=== PATIENT | female | born 1945 | race Caucasian/White ===

== ENCOUNTER 2016-09-18 17:13 | Emergency (ER) | payer BC ==
[~2016-09-18] VITALS: Ht 162.6 cm; Wt 55.9 kg
[2016-09-18 17:21] VITALS: TEMP 98.1
[2016-09-18] MEDS ORDERED: VALIUM 5MG T5 MG/TAB PO (18:33)
[2016-09-18] MEDS ORDERED: ZOFRAN ODT8 MG PO (18:33)
[2016-09-18 18:49] VITALS: PULSE 89
[2016-09-18 18:53] VITALS: BP 165/107
== END 2016-09-18 18:55 | disposition home or self-care (01) ==
LOC: COL.ER 17:13
DX: M54.2 Cervicalgia (principal); G89.29 Other chronic pain; M50.20 Other cervical disc displacement, unspecified cervical region
CPT/HCPCS: J2270; J2360

== ENCOUNTER 2017-03-30 14:23 | Emergency (ER) | payer BC ==
[~2017-03-30] VITALS: Ht 162.6 cm; Wt 56.8 kg
[~2017-03-30 14:23] MED LIST: VALIUM 5MG T5 MG/TAB PO; ZOFRAN ODT8 MG PO
[2017-03-30 14:29] VITALS: TEMP 98.6
[2017-03-30] MEDS ORDERED: SYNTHROID 0.0.025 MG PO (15:45)
[2017-03-30] MEDS ORDERED: WELLBUTRIN XL300 M1 PO (15:45)
[2017-03-30] MEDS ORDERED: NORCO2.5 PO (15:46)
[2017-03-30] MEDS ORDERED: HCTZ12.5TAB PO (15:46)
[2017-03-30] MEDS ORDERED: NEXIUM 20MG20 MG PO (15:46)
[2017-03-30] MEDS ORDERED: VALIUM 2MG T2 MG/TAB PO (15:48)
[2017-03-30] MEDS ORDERED: CEPHALEXIN500 M1 PO (16:08)
[2017-03-30 16:52] VITALS: BP 144/85; PULSE 68
[2017-03-30] MEDS ORDERED: SYNTHROID0.05 MG/TA PO (21:25)
== END 2017-03-30 16:55 | disposition home or self-care (01) ==
LOC: COL.ER 14:23
DX: S61.210A Laceration without foreign body of right index finger without damage to nail, initial encounter (principal); W27.8XXA Contact with other nonpowered hand tool, initial encounter; Z23 Encounter for immunization

== ENCOUNTER 2017-03-30 21:18 | Emergency (ER) | payer BC ==
[~2017-03-30] VITALS: Ht 154.9 cm; Wt 56.8 kg
[~2017-03-30 21:18] MED LIST changes: +CEPHALEXIN500 M1 PO; +HCTZ12.5TAB PO; +NEXIUM 20MG20 MG PO; +NORCO2.5 PO; +SYNTHROID 0.0.025 MG PO; +VALIUM 2MG T2 MG/TAB PO; +WELLBUTRIN XL300 M1 PO
[2017-03-30 21:20] VITALS: BP 158/93; TEMP 99.3
[2017-03-30] MEDS ORDERED: SYNTHROID0.05 MG/TA PO (21:25)
[2017-03-30 22:13] VITALS: PULSE 80
== END 2017-03-30 22:13 | disposition home or self-care (01) ==
LOC: COL.ER 21:18
DX: S61.211D Laceration without foreign body of left index finger without damage to nail, subsequent encounter (principal); X58.XXXD Exposure to other specified factors, subsequent encounter; I10 Essential (primary) hypertension; E03.9 Hypothyroidism, unspecified; K21.9 Gastro-esophageal reflux disease without esophagitis; G89.29 Other chronic pain; M54.2 Cervicalgia

== ENCOUNTER 2017-04-14 19:15 | Emergency (ER) | payer BC ==
[~2017-04-14 19:15] MED LIST changes: +SYNTHROID0.05 MG/TA PO
[2017-04-14 19:52] VITALS: BP 138/88; PULSE 82; TEMP 99.1
== END 2017-04-14 19:53 | disposition home or self-care (01) ==
LOC: COL.ER 19:15
DX: Z48.02 Encounter for removal of sutures (principal)

== ENCOUNTER 2017-05-04 15:33 | Inpatient (IN) | payer BC ==
[~2017-05-04] VITALS: Ht 162.6 cm; Wt 55.8 kg
[2017-05-04] MEDS ORDERED: MACRODANTIN100 PO (15:57)
[2017-05-04 16:23] LABS: BASO # 0.1 (0.0-0.2); BASO % 0.4 % (0.0-2.0); EOS % 0.1 % (0-4.0); GRAN # 15.3 (1.4-6.5); GRAN % 89.8 % (42.2-75.2); HEMATOCRIT 42.6 % (37.0-47.0); HEMOGLOBIN 14.7 g/dl (12.5-16.0); LYMPH # 0.8 (1.2-3.4); LYMPH % 4.7 % (20.0-51.0); MEAN CELL VOLUME 79 fl (80.0-100.0); MEAN CORPUSCULAR HEMOGLOBIN 27 pg (27.0-31.0); MEAN CORPUSCULAR HGB CONC 35 g/dl (33.0-37.0); MEAN PLATELET VOLUME 8.7 fl (7.4-10.4); MONO # 0.8 (0.1-0.6); MONO % 4.4 % (1.7-9.3); PLATELET COUNT 327 K/mm3 (130-400); RED BLOOD COUNT 5.43 M/mm3 (4.10-5.30); REDCELL DISTRIBUTION WIDTH-CV 13.4 % (11.5-14.5)
[2017-05-04 16:35] LABS: ADJUSTED CALCIUM 9.3 mg/dL (8.4-10.2); ALBUMIN 4.7 gm/dL (3.5-5.0); BILIRUBIN,TOTAL 1.1 mg/dL (0.0-1.0); CALCIUM 9.9 mg/dL (8.4-10.2); CREATININE, serum 0.54 mg/dL (0.52-1.25); TOTAL PROTEIN 7.1 gm/dL (6.4-8.2)
[2017-05-04 16:43] LABS: POTASSIUM 2.7 mmol/L (3.4-5.0)
[2017-05-04 18:13] LABS: PH 8 (5-8); SQUAMOUS EPITHELIAL 0-2 /hpf; URINE APPEARANCE Cloudy; URINE BACTERIA None Seen /hpf; URINE BILIRUBIN Negative (NEGATIVE); URINE BLOOD 2+ (NEGATIVE); URINE COLOR Yellow; URINE GLUCOSE Negative (NEGATIVE); URINE KETONE 1+ (NEGATIVE); URINE RBC None Seen /hpf; URINE UROBILINOGEN Negative (NEGATIVE); URINE WBC 0-2 /hpf
[2017-05-04 18:40] VITALS: BP 151/17; PULSE 98
[2017-05-04 18:54] VITALS: TEMP 99.3
[2017-05-04 23:44] VITALS: BP 112/57; PULSE 89; TEMP 99
[2017-05-05 03:59] VITALS: BP 112/58; PULSE 82; TEMP 98.1
[2017-05-05 07:41] VITALS: BP 120/68; PULSE 78; TEMP 98.4
[2017-05-05 12:13] VITALS: BP 131/79; PULSE 74; TEMP 98.7
[2017-05-05 16:00] VITALS: BP 145/101; PULSE 99; TEMP 98.2
[2017-05-05 20:29] VITALS: BP 149/96; PULSE 75; TEMP 98.9
[2017-05-06] VITALS (7 sets, daily range): BP systolic 127–154; BP diastolic 82–94; PULSE 65–81; TEMP 97.9–98.9
[2017-05-07 03:54] VITALS: BP 118/71; PULSE 74; TEMP 98.2
[2017-05-07 07:51] VITALS: BP 153/86; PULSE 77; TEMP 98.9
[2017-05-07 11:49] VITALS: BP 125/63; PULSE 74; TEMP 99.2
[2017-05-07 15:31] VITALS: BP 139/85; PULSE 68; TEMP 98.5
[2017-05-07] MEDS ORDERED: KLOR-CON 1010 MEQ PO (17:03)
[2017-05-07] MEDS ORDERED: LEVAQUIN 5500 MG/TA1 PO (17:04)
== END 2017-05-07 18:21 | disposition home or self-care (01) | DRG 392 ==
LOC: COL.ER 15:33 → MEDICAL 17:20
PROVIDERS: Emergency Medicine
DX: K52.9 Noninfective gastroenteritis and colitis, unspecified (principal); E03.9 Hypothyroidism, unspecified; F32.9 Major depressive disorder, single episode, unspecified; K59.03 Drug induced constipation; T40.605A Adverse effect of unspecified narcotics, initial encounter; Z86.010 Personal history of colon polyps; M54.2 Cervicalgia
CPT/HCPCS: C9113; J1956; J2405; J2543; J2765; J3010; J3480; J7030; J7050; Q9967

== ENCOUNTER 2017-05-30 21:49 | Inpatient (IN) | payer BC ==
[~2017-05-30] VITALS: Ht 162.6 cm; Wt 56.8 kg
[~2017-05-30 21:49] MED LIST changes: +KLOR-CON 1010 MEQ PO; +LEVAQUIN 5500 MG/TA1 PO; +MACRODANTIN100 PO
[2017-05-30 22:26] LABS: BASO % 0.1 % (0.0-2.0); GRAN # 14.6 (1.4-6.5); GRAN % 91.7 % (42.2-75.2); HEMATOCRIT 45.5 % (37.0-47.0); HEMOGLOBIN 15.6 g/dl (12.5-16.0); LYMPH # 0.6 (1.2-3.4); LYMPH % 3.7 % (20.0-51.0); MEAN CELL VOLUME 80 fl (80.0-100.0); MEAN CORPUSCULAR HEMOGLOBIN 28 pg (27.0-31.0); MEAN CORPUSCULAR HGB CONC 34 g/dl (33.0-37.0); MEAN PLATELET VOLUME 8.5 fl (7.4-10.4); MONO # 0.6 (0.1-0.6); MONO % 3.9 % (1.7-9.3); PLATELET COUNT 283 K/mm3 (130-400); RED BLOOD COUNT 5.67 M/mm3 (4.10-5.30); REDCELL DISTRIBUTION WIDTH-CV 13.2 % (11.5-14.5)
[2017-05-30 22:38] LABS: ADJUSTED CALCIUM 9.3 mg/dL (8.4-10.2); ALBUMIN 4.7 gm/dL (3.5-5.0); BILIRUBIN,TOTAL 0.8 mg/dL (0.0-1.0); CALCIUM 9.9 mg/dL (8.4-10.2); CREATININE, serum 0.58 mg/dL (0.52-1.25); POTASSIUM 3.1 mmol/L (3.4-5.0); TOTAL PROTEIN 7.7 gm/dL (6.4-8.2)
[2017-05-30 23:41] LABS: PH 7 (5-8); SQUAMOUS EPITHELIAL None Seen /hpf; URINE APPEARANCE Clear; URINE BACTERIA None Seen /hpf; URINE BILIRUBIN Negative (NEGATIVE); URINE BLOOD 1+ (NEGATIVE); URINE COLOR Yellow; URINE GLUCOSE 1+ (NEGATIVE); URINE KETONE 1+ (NEGATIVE); URINE RBC 20-50 /hpf; URINE UROBILINOGEN Negative (NEGATIVE)
[2017-05-31] VITALS (7 sets, daily range): BP systolic 111–154; BP diastolic 68–80; PULSE 66–87; TEMP 98.1–100.1
[2017-06-01 03:21] VITALS: BP 142/74; PULSE 97; TEMP 98.5
[2017-06-01] MEDS ORDERED: NORCO 325 MG-51 TAB PO (07:46)
[2017-06-01 08:22] VITALS: BP 110/73; BP 151/84; PULSE 100; PULSE 59; TEMP 97.6; TEMP 98.4
[2017-06-01 12:16] VITALS: BP 146/81; PULSE 76
[2017-06-01 16:23] VITALS: BP 109/67; PULSE 71; TEMP 98.9
[2017-06-01 19:18] VITALS: BP 120/70; PULSE 71; TEMP 98.9
[2017-06-01 22:44] VITALS: BP 125/71; PULSE 63; TEMP 99.2
[2017-06-02] VITALS (7 sets, daily range): BP systolic 120–149; BP diastolic 51–89; PULSE 62–80; TEMP 97.5–98.6
[2017-06-02] MEDS ORDERED: LEVAQUIN 750MG750 M1 PO ×2 (18:08→18:09)
[2017-06-02] MEDS ORDERED: FLAGYL500 MG PO (18:11)
[2017-06-02] MEDS ORDERED: NORCO 325 MG-51 TAB PO (18:15)
== END 2017-06-02 19:05 | disposition home or self-care (01) | DRG 392 ==
LOC: COL.ER 21:49 → MEDICAL 22:26
PROVIDERS: Emergency Medicine; Internal Medicine Gastroenterology
PROC: 0DJD8ZZ Inspection of Lower Intestinal Tract, Via Natural or Artificial Opening Endoscopic (ICD-10-PCS; principal; 2017-06-02 16:00)
DX: K57.32 Diverticulitis of large intestine without perforation or abscess without bleeding (principal); M54.2 Cervicalgia
CPT/HCPCS: J1170; J1956; J2405; J2704; J7030; Q9967

== ENCOUNTER 2017-10-25 16:48 | Inpatient (IN) | payer BC, MEDICARE ==
[~2017-10-25] VITALS: Ht 162.6 cm; Wt 60.9 kg
[~2017-10-25 16:48] MED LIST changes: +FLAGYL500 MG PO; +LEVAQUIN 750MG750 M1 PO; +NORCO 325 MG-51 TAB PO
[2017-10-25 17:21] LABS: BASO % 0.4 % (0.0-2.0); EOS # 0.1 (0.0-0.7); EOS % 1.2 % (0-4.0); GRAN # 7.9 (1.4-6.5); GRAN % 76.1 % (42.2-75.2); HEMATOCRIT 44.5 % (37.0-47.0); HEMOGLOBIN 14.6 g/dl (12.5-16.0); LYMPH # 1.9 (1.2-3.4); LYMPH % 17.9 % (20.0-51.0); MEAN CELL VOLUME 82 fl (80.0-100.0); MEAN CORPUSCULAR HEMOGLOBIN 27 pg (27.0-31.0); MEAN CORPUSCULAR HGB CONC 33 g/dl (33.0-37.0); MEAN PLATELET VOLUME 8.5 fl (7.4-10.4); MONO # 0.4 (0.1-0.6); PLATELET COUNT 328 K/mm3 (130-400); RED BLOOD COUNT 5.43 M/mm3 (4.10-5.30)
[2017-10-25 17:34] LABS: ALANINE AMINOTRANSFERASE 27 U/L (9-52); ALBUMIN 4.4 gm/dL (3.5-5.0); ALKALINE PHOSPHATASE 58 U/L (50-136); ANION GAP 10 mmol/L (7-16); AST,SGOT 28 U/L (15-37); BILIRUBIN,TOTAL 0.4 mg/dL (0.0-1.0); BLOOD UREA NITROGEN 18 mg/dL (7-17); CALCIUM 8.8 mg/dL (8.4-10.2); CARBON DIOXIDE 27 mmol/L (22-30); CHLORIDE 98 mmol/L (98-107); CREATININE, serum 0.62 mg/dL (0.52-1.25); GLUCOSE 133 mg/dL (74-106); LIPASE 90 U/L (23-300); POTASSIUM 3.4 mmol/L (3.4-5.0); SODIUM 136 mmol/L (137-145)
[2017-10-25 17:36] LABS: C-REACTIVE PROTEIN < 0.5 mg/dL (0.0-0.9)
[2017-10-25 18:26] LABS: COLLECTION METHOD CLEAN CATCH
[2017-10-25 18:43] LABS: PH 8 (5-8); SQUAMOUS EPITHELIAL None Seen /hpf; URINE APPEARANCE Hazy; URINE BACTERIA None Seen /hpf; URINE BILIRUBIN Negative (NEGATIVE); URINE BLOOD 1+ (NEGATIVE); URINE COLOR Yellow; URINE GLUCOSE Negative (NEGATIVE); URINE KETONE Negative (NEGATIVE); URINE LEUKOCYTE ESTERASE Negative (NEGATIVE); URINE NITRATE Negative (NEGATIVE); URINE PROTEIN(semi-quant) Negative (NEGATIVE); URINE UROBILINOGEN Negative (NEGATIVE)
[2017-10-25] MEDS ORDERED: STOOL SOFTENER100 M2 PO (18:57)
[2017-10-25 23:40] VITALS: BP 118/51; PULSE 96
[2017-10-25 23:59] VITALS: BP 123/61; PULSE 103; TEMP 98.9
[2017-10-26] VITALS (12 sets, daily range): BP systolic 108–146; BP diastolic 44–84; PULSE 81–104; TEMP 98.1–99.2
[2017-10-26 12:23] LABS: BASO % 0.2 % (0.0-2.0); GRAN # 12.6 (1.4-6.5); GRAN % 88.4 % (42.2-75.2); LYMPH # 0.8 (1.2-3.4); LYMPH % 5.8 % (20.0-51.0); MEAN CELL VOLUME 82 fl (80.0-100.0); MEAN CORPUSCULAR HGB CONC 33 g/dl (33.0-37.0); MONO # 0.8 (0.1-0.6); MONO % 5.3 % (1.7-9.3); PLATELET COUNT 248 K/mm3 (130-400); RED BLOOD COUNT 4.14 M/mm3 (4.10-5.30); REDCELL DISTRIBUTION WIDTH-CV 14.3 % (11.5-14.5)
[2017-10-26 12:25] LABS: HEMATOCRIT 34.1 % (37.0-47.0); HEMOGLOBIN 11.3 g/dl (12.5-16.0); MEAN CORPUSCULAR HEMOGLOBIN 27 pg (27.0-31.0)
[2017-10-26 12:33] LABS: CALCIUM 7.5 mg/dL (8.4-10.2); CREATININE, serum 0.68 mg/dL (0.52-1.25); POTASSIUM 3.2 mmol/L (3.4-5.0)
[2017-10-27 01:59] VITALS: BP 175/99; PULSE 94; TEMP 98.2
[2017-10-27 05:15] VITALS: BP 169/97; PULSE 90; TEMP 98.2
[2017-10-27 07:30] LABS: CALCIUM 8.1 mg/dL (8.4-10.2); CREATININE, serum 0.52 mg/dL (0.52-1.25)
[2017-10-27 07:44] LABS: POTASSIUM 2.7 mmol/L (3.4-5.0)
[2017-10-27 09:59] VITALS: BP 173/89; PULSE 89; TEMP 98.7
[2017-10-27 13:39] VITALS: BP 172/99; PULSE 91; TEMP 97.6
[2017-10-27 17:54] VITALS: BP 144/71; PULSE 102; TEMP 98.4
[2017-10-27 21:33] VITALS: BP 162/90; PULSE 94; TEMP 98.4
[2017-10-28] VITALS (7 sets, daily range): BP systolic 147–197; BP diastolic 85–100; PULSE 77–93; TEMP 97.1–99.4
[2017-10-28 08:18] LABS: BASO % 0.1 % (0.0-2.0); GRAN # 15.2 (1.4-6.5); GRAN % 89.7 % (42.2-75.2); LYMPH # 0.9 (1.2-3.4); LYMPH % 5.1 % (20.0-51.0); MEAN CELL VOLUME 80 fl (80.0-100.0); MEAN CORPUSCULAR HGB CONC 34 g/dl (33.0-37.0); MEAN PLATELET VOLUME 8.8 fl (7.4-10.4); MONO # 0.7 (0.1-0.6); MONO % 3.9 % (1.7-9.3); PLATELET COUNT 261 K/mm3 (130-400); REDCELL DISTRIBUTION WIDTH-CV 13.7 % (11.5-14.5)
[2017-10-28 08:21] LABS: HEMATOCRIT 33.7 % (37.0-47.0); HEMOGLOBIN 11.4 g/dl (12.5-16.0); MEAN CORPUSCULAR HEMOGLOBIN 27 pg (27.0-31.0)
[2017-10-28 08:27] LABS: CALCIUM 7.7 mg/dL (8.4-10.2); CREATININE, serum 0.48 mg/dL (0.52-1.25)
[2017-10-28 08:28] LABS: POTASSIUM 2.8 mmol/L (3.4-5.0)
[2017-10-29] VITALS (7 sets, daily range): BP systolic 154–178; BP diastolic 86–99; PULSE 78–103; TEMP 98.5–99.6
[2017-10-29 07:25] LABS: CALCIUM 7.4 mg/dL (8.4-10.2); CREATININE, serum 0.42 mg/dL (0.52-1.25)
[2017-10-29 07:30] LABS: POTASSIUM 2.3 mmol/L (3.4-5.0)
[2017-10-29 09:43] LABS: MAGNESIUM 1.7 mg/dL (1.6-2.3); PHOSPHOROUS 1.3 mg/dL (2.5-4.5)
[2017-10-29 13:17] LABS: PRE ALBUMIN 19.9 mg/dL (17.6-36.0)
[2017-10-30 00:22] VITALS: BP 180/93; PULSE 78; TEMP 97.4
[2017-10-30 02:19] VITALS: BP 151/90; PULSE 81
[2017-10-30 05:23] VITALS: BP 150/80; PULSE 75; TEMP 99
[2017-10-30 06:52] LABS: CALCIUM 7.4 mg/dL (8.4-10.2); CREATININE, serum 0.42 mg/dL (0.52-1.25); MAGNESIUM 1.9 mg/dL (1.6-2.3); PHOSPHOROUS 1.8 mg/dL (2.5-4.5)
[2017-10-30 07:13] LABS: POTASSIUM 2.6 mmol/L (3.4-5.0)
[2017-10-30 10:20] VITALS: BP 156/88; PULSE 79; TEMP 99.2
[2017-10-30 17:57] VITALS: BP 136/82; PULSE 80; TEMP 99.3
[2017-10-30 21:51] VITALS: BP 154/87; PULSE 84; TEMP 98.8
[2017-10-31] VITALS (7 sets, daily range): BP systolic 143–165; BP diastolic 73–96; PULSE 74–85; TEMP 98.2–99.5
[2017-10-31 06:49] LABS: CALCIUM 7.3 mg/dL (8.4-10.2); CREATININE, serum 0.4 mg/dL (0.52-1.25); MAGNESIUM 1.9 mg/dL (1.6-2.3); PHOSPHOROUS 1.7 mg/dL (2.5-4.5)
[2017-11-01 02:27] VITALS: BP 149/88; PULSE 83; TEMP 99.4
[2017-11-01 06:00] VITALS: BP 148/84; PULSE 81; TEMP 99.6
[2017-11-01 07:30] LABS: CALCIUM 7.6 mg/dL (8.4-10.2); CREATININE, serum 0.42 mg/dL (0.52-1.25); PHOSPHOROUS 3.4 mg/dL (2.5-4.5); POTASSIUM 3.7 mmol/L (3.4-5.0)
[2017-11-01 10:50] VITALS: BP 133/79; PULSE 77; TEMP 99.7
[2017-11-01 13:29] VITALS: BP 127/75; PULSE 83; TEMP 98.3
[2017-11-01 17:22] VITALS: BP 111/70; PULSE 76; TEMP 97.9
[2017-11-01 20:00] VITALS: BP 144/79; PULSE 84; TEMP 99.7
[2017-11-02 00:37] VITALS: BP 136/79; PULSE 78; TEMP 98.8
[2017-11-02 05:00] VITALS: BP 128/74; PULSE 70; TEMP 98.9
[2017-11-02 07:21] LABS: CALCIUM 7.4 mg/dL (8.4-10.2); CREATININE, serum 0.48 mg/dL (0.52-1.25); MAGNESIUM 1.9 mg/dL (1.6-2.3); PHOSPHOROUS 3.4 mg/dL (2.5-4.5); POTASSIUM 4.1 mmol/L (3.4-5.0)
[2017-11-02 09:25] VITALS: BP 141/84; PULSE 76; TEMP 98.6
[2017-11-02 13:54] VITALS: BP 129/75; PULSE 74; TEMP 98.1
[2017-11-02 17:19] VITALS: BP 130/74; PULSE 76; TEMP 98.5
[2017-11-02 22:48] VITALS: BP 137/85; PULSE 76; TEMP 98
[2017-11-03 02:20] VITALS: BP 145/81; PULSE 77; TEMP 98.9
[2017-11-03 04:52] VITALS: BP 137/80; PULSE 70; TEMP 99.3
[2017-11-03 06:52] LABS: CALCIUM 7.6 mg/dL (8.4-10.2); CREATININE, serum 0.45 mg/dL (0.52-1.25); MAGNESIUM 1.9 mg/dL (1.6-2.3); PHOSPHOROUS 3.5 mg/dL (2.5-4.5); POTASSIUM 3.8 mmol/L (3.4-5.0)
[2017-11-03 09:48] VITALS: BP 131/75; PULSE 77; TEMP 99.2
[2017-11-03 14:06] VITALS: BP 138/77; PULSE 76; TEMP 98.9
[2017-11-03 17:01] VITALS: BP 138/80; PULSE 77; TEMP 98.6
[2017-11-03 22:06] VITALS: BP 159/88; PULSE 79; TEMP 98.8
[2017-11-04] VITALS (7 sets, daily range): BP systolic 122–138; BP diastolic 74–84; PULSE 70–82; TEMP 98.1–98.9
[2017-11-05 03:03] VITALS: BP 147/87; PULSE 73; TEMP 98
[2017-11-05 05:40] VITALS: BP 135/76; PULSE 77; TEMP 98.2
[2017-11-05 06:47] LABS: MAGNESIUM 1.8 mg/dL (1.6-2.3); PHOSPHOROUS 4.1 mg/dL (2.5-4.5)
[2017-11-05 07:00] VITALS: BP 135/81; PULSE 83; TEMP 98.6
[2017-11-05 10:00] VITALS: BP 135/81; PULSE 82; TEMP 98.2
[2017-11-05 13:53] VITALS: BP 141/84; PULSE 87; TEMP 98.1
[2017-11-05 17:27] VITALS: BP 162/86; PULSE 81; TEMP 98.6
[2017-11-05] MEDS ORDERED: MIRALAX PA17 GM/Dose PO (20:01)
== END 2017-11-05 22:17 | disposition home or self-care (01) | DRG 329 ==
LOC: COL.ER 16:48 → SURG 18:58
PROVIDERS: Emergency Medicine; Internal Medicine; Surgery
PROC: 0DBN0ZZ Excision of Sigmoid Colon, Open Approach (ICD-10-PCS; principal; 2017-10-25 20:45)
PROC: 0D1N0Z4 Bypass Sigmoid Colon to Cutaneous, Open Approach (ICD-10-PCS; 2017-10-25 20:45)
DX: K63.1 Perforation of intestine (nontraumatic) (principal); K65.9 Peritonitis, unspecified; E87.1 Hypo-osmolality and hyponatremia; E44.0 Moderate protein-calorie malnutrition; K52.89 Other specified noninfective gastroenteritis and colitis; I10 Essential (primary) hypertension; K56.41 Fecal impaction; K21.9 Gastro-esophageal reflux disease without esophagitis; M50.30 Other cervical disc degeneration, unspecified cervical region; G89.29 Other chronic pain; E87.6 Hypokalemia; Z79.891 Long term (current) use of opiate analgesic
CPT/HCPCS: A4217; A4314; A9284; C1751; C1765; C9113; J0610; J1100; J1170; J1644; J1650; J1885; J2060; J2250; J2405; J2543; J2704; J2795; J3010; J3475; J3480; J7030; J7050; J7060; J7070; J7120; J7131; Q9967

== ENCOUNTER → 2017-11-12 | Outpatient (CLI) | payer BC ==
[~2017-11-12] MED LIST changes: +MIRALAX PA17 GM/Dose PO; +STOOL SOFTENER100 M2 PO
== END ==
LOC: COL.RAD 09:45
DX: M50.321 Other cervical disc degeneration at C4-C5 level (principal); M99.12 Subluxation complex (vertebral) of thoracic region

== ENCOUNTER → 2017-11-19 | Outpatient (CLI) | payer BC | LOC: MHCPAIN 09:20 | DX: G89.29 Other chronic pain (principal); M47.812 Spondylosis without myelopathy or radiculopathy, cervical region; R51 Headache | CPT/HCPCS: G0463 ==

== ENCOUNTER 2017-12-12 08:15 | Inpatient (IN) | payer BC, MEDICARE ==
[~2017-12-12] VITALS: Ht 162.6 cm; Wt 55.2 kg
[2018-01-21] VITALS (12 sets, daily range): BP systolic 95–148; BP diastolic 43–93; PULSE 70–87; TEMP 98.1–99.2
[2018-01-21] MEDS ORDERED: MIRALAX PA17 GM/Dose PO (06:10)
[2018-01-21] MEDS ORDERED: NORCO 325 MG-51 TAB PO (06:11)
[2018-01-21] MEDS ORDERED: NEXIUM 40MG40 MG PO (06:12)
[2018-01-21] MEDS ORDERED: ZESTRIL 10MG10 MG PO (06:12)
[2018-01-21] MEDS ORDERED: PROBIOTIC FORMU1 CAP PO (06:13)
[2018-01-21] MEDS ORDERED: FLEXERIL 1010 MG/TAB PO (06:13)
[2018-01-21] MEDS ORDERED: ZOFRAN8 MG PO (06:13)
[2018-01-21] MEDS ORDERED: ALEVE 220MG220 MG PO (06:14)
[2018-01-21] MEDS ORDERED: BENADRYL25 M2 PO (06:14)
[2018-01-21 07:03] LABS: BASO % 0.4 % (0.0-2.0); EOS % 0.1 % (0-4.0); GRAN # 7.7 (1.4-6.5); GRAN % 82.3 % (42.2-75.2); HEMATOCRIT 38.1 % (37.0-47.0); HEMOGLOBIN 12.4 g/dl (12.5-16.0); LYMPH # 0.9 (1.2-3.4); LYMPH % 9.6 % (20.0-51.0); MEAN CELL VOLUME 77 fl (80.0-100.0); MEAN CORPUSCULAR HEMOGLOBIN 25 pg (27.0-31.0); MEAN CORPUSCULAR HGB CONC 33 g/dl (33.0-37.0); MEAN PLATELET VOLUME 8.6 fl (7.4-10.4); MONO # 0.7 (0.1-0.6); MONO % 7.2 % (1.7-9.3); PLATELET COUNT 272 K/mm3 (130-400); RED BLOOD COUNT 4.93 M/mm3 (4.10-5.30); REDCELL DISTRIBUTION WIDTH-CV 14.3 % (11.5-14.5)
[2018-01-21 07:21] LABS: ALBUMIN 3.8 gm/dL (3.5-5.0); BILIRUBIN,TOTAL 0.5 mg/dL (0.0-1.0); CALCIUM 8.6 mg/dL (8.4-10.2); CREATININE, serum 0.56 mg/dL (0.52-1.25); POTASSIUM 3.8 mmol/L (3.4-5.0); TOTAL PROTEIN 6.9 gm/dL (6.4-8.2)
[2018-01-22 00:19] VITALS: BP 144/81; PULSE 70; TEMP 98.7
[2018-01-22 04:01] VITALS: BP 136/71; PULSE 84; TEMP 98.3
[2018-01-22 07:16] LABS: BASO % 0.2 % (0.0-2.0); EOS % 0.1 % (0-4.0); GRAN # 7.7 (1.4-6.5); GRAN % 78.4 % (42.2-75.2); HEMOGLOBIN 10.7 g/dl (12.5-16.0); LYMPH # 1.2 (1.2-3.4); LYMPH % 12.5 % (20.0-51.0); MEAN CELL VOLUME 76 fl (80.0-100.0); MEAN CORPUSCULAR HEMOGLOBIN 25 pg (27.0-31.0); MEAN CORPUSCULAR HGB CONC 33 g/dl (33.0-37.0); MEAN PLATELET VOLUME 8.5 fl (7.4-10.4); MONO # 0.8 (0.1-0.6); MONO % 8.3 % (1.7-9.3); PLATELET COUNT 251 K/mm3 (130-400); RED BLOOD COUNT 4.29 M/mm3 (4.10-5.30); REDCELL DISTRIBUTION WIDTH-CV 14.5 % (11.5-14.5)
[2018-01-22 07:18] LABS: HEMATOCRIT 32.6 % (37.0-47.0)
[2018-01-22 07:24] VITALS: BP 112/59; PULSE 86; TEMP 98.1
[2018-01-22 07:27] LABS: CALCIUM 7.8 mg/dL (8.4-10.2); CREATININE, serum 0.56 mg/dL (0.52-1.25); POTASSIUM 3.3 mmol/L (3.4-5.0)
[2018-01-22 11:10] VITALS: BP 138/78; PULSE 88; TEMP 99.3
[2018-01-22 15:37] VITALS: BP 125/73; PULSE 79; TEMP 99.3
[2018-01-22 20:12] VITALS: BP 146/85; PULSE 83; TEMP 99.8
[2018-01-23] VITALS (8 sets, daily range): BP systolic 128–160; BP diastolic 76–90; PULSE 85–97; TEMP 97.9–100.6
[2018-01-24 00:14] VITALS: BP 140/89; PULSE 94; TEMP 98.4
[2018-01-24 04:57] VITALS: BP 151/99; PULSE 98; TEMP 98.4
[2018-01-24 08:06] VITALS: BP 152/100; PULSE 79; TEMP 98.5
[2018-01-24 08:10] VITALS: BP 160/102
== END 2018-01-24 11:57 | disposition home or self-care (01) | DRG 329 ==
LOC: INPTSU 01-21 05:40 → SURG 01-21 05:40 → EDSTATUS 01-21 07:30 → SDCO 01-21 07:30 → SURG 01-21 11:30
PROVIDERS: Surgery
PROC: 8E0W4CZ Robotic Assisted Procedure of Trunk Region, Percutaneous Endoscopic Approach (ICD-10-PCS; 2018-01-21)
PROC: 0DBN4ZZ Excision of Sigmoid Colon, Percutaneous Endoscopic Approach (ICD-10-PCS; principal; 2018-01-21 07:30)
DX: Z43.3 Encounter for attention to colostomy (principal); K65.1 Peritoneal abscess; I10 Essential (primary) hypertension
CPT/HCPCS: A4314; A9284; G0463; J0690; J1170; J1650; J1885; J2175; J2405; J2704; J3010; J7120

== ENCOUNTER → 2017-12-18 | Outpatient (CLI) | payer BC, MEDICARE, OTHER | LOC: MHCPAIN 12:47 | DX: M50.31 Other cervical disc degeneration, high cervical region (principal) ==

== ENCOUNTER → 2017-12-24 | Outpatient (CLI) | payer BC, MEDICARE, OTHER | LOC: MHCPAIN 14:49 | DX: G89.29 Other chronic pain (principal); M50.90 Cervical disc disorder, unspecified, unspecified cervical region; R51 Headache | CPT/HCPCS: G0463 ==

== ENCOUNTER → 2017-12-24 | Outpatient (CLI) | payer BC, MEDICARE, OTHER | LOC: MHCPAIN 15:03 | DX: Z01.89 Encounter for other specified special examinations (principal) ==

== ENCOUNTER → 2018-02-11 | Outpatient (CLI) | payer BC, MEDICARE ==
[~2018-02-11] MED LIST changes: +ALEVE 220MG220 MG PO; +BENADRYL25 M2 PO; +FLEXERIL 1010 MG/TAB PO; +NEXIUM 40MG40 MG PO; +PROBIOTIC FORMU1 CAP PO; +ZESTRIL 10MG10 MG PO; +ZOFRAN8 MG PO
== END ==
LOC: MHCPAIN 10:01
DX: M50.31 Other cervical disc degeneration, high cervical region (principal)
CPT/HCPCS: J1100; J2250; J3010

== ENCOUNTER → 2018-04-15 | Outpatient (CLI) | payer BC, MEDICARE | LOC: MHCPAIN 15:48 | DX: G89.29 Other chronic pain (principal); M50.90 Cervical disc disorder, unspecified, unspecified cervical region; M54.81 Occipital neuralgia; R51 Headache | CPT/HCPCS: G0463 ==

== ENCOUNTER 2018-06-01 02:57 | Emergency (ER) | payer BC, MEDICARE ==
[~2018-06-01] VITALS: Ht 162.6 cm; Wt 55.5 kg
[2018-06-01 03:03] VITALS: TEMP 97.9
[2018-06-01] MEDS ORDERED: ALLEGRA 60MG TA60 MG PO (03:11)
[2018-06-01] MEDS ORDERED: SUDAFED30 MG PO (03:11)
[2018-06-01] MEDS ORDERED: FLONASEALLERGY NS (03:12)
[2018-06-01] MEDS ORDERED: SINGULAIR 110 MG/TAB PO (03:12)
[2018-06-01] MEDS ORDERED: FLEXERIL 1010 MG/TAB PO (03:14)
[2018-06-01 03:51] LABS: BASO # 0.1 (0.0-0.2); BASO % 0.9 % (0.0-2.0); EOS # 0.3 (0.0-0.7); EOS % 4.2 % (0-4.0); GRAN # 3.4 (1.4-6.5); GRAN % 51.5 % (42.2-75.2); HEMOGLOBIN 11.7 g/dl (12.5-16.0); LYMPH # 2.1 (1.2-3.4); LYMPH % 32.2 % (20.0-51.0); MEAN CELL VOLUME 79 fl (80.0-100.0); MEAN CORPUSCULAR HEMOGLOBIN 26 pg (27.0-31.0); MEAN CORPUSCULAR HGB CONC 33 g/dl (33.0-37.0); MEAN PLATELET VOLUME 8.7 fl (7.4-10.4); MONO # 0.7 (0.1-0.6); MONO % 10.9 % (1.7-9.3); PLATELET COUNT 275 K/mm3 (130-400); RED BLOOD COUNT 4.56 M/mm3 (4.10-5.30); REDCELL DISTRIBUTION WIDTH-CV 14.8 % (11.5-14.5)
[2018-06-01 03:52] LABS: HEMATOCRIT 35.9 % (37.0-47.0)
[2018-06-01 03:56] LABS: PROTHROMBIN TIME 10.9 SECONDS (9.7-12.8)
[2018-06-01 03:59] LABS: PARTIAL THROMBOPLASTIN TIME 29.5 SECONDS (26.0-37.0)
[2018-06-01 04:00] LABS: CALCIUM 8.2 mg/dL (8.4-10.2); CREATININE, serum 0.74 mg/dL (0.52-1.25); POTASSIUM 3.3 mmol/L (3.4-5.0)
[2018-06-01 04:39] VITALS: BP 151/106; PULSE 85
== END 2018-06-01 04:41 | disposition home or self-care (01) ==
LOC: COL.ER 02:57
PROVIDERS: Emergency Medicine
DX: M79.81 Nontraumatic hematoma of soft tissue (principal); I10 Essential (primary) hypertension

== ENCOUNTER → 2018-06-09 | Outpatient (CLI) | payer BC, MEDICARE ==
[~2018-06-09] MED LIST changes: +ALLEGRA 60MG TA60 MG PO; +FLONASEALLERGY NS; +SINGULAIR 110 MG/TAB PO; +SUDAFED30 MG PO
== END ==
LOC: COL.RAD 14:19
DX: M75.121 Complete rotator cuff tear or rupture of right shoulder, not specified as traumatic (principal); M62.511 Muscle wasting and atrophy, not elsewhere classified, right shoulder

== ENCOUNTER 2018-08-07 17:20 | Inpatient (IN) | payer BC, MEDICARE ==
[~2018-08-07] VITALS: Ht 162.6 cm; Wt 57.1 kg
[2018-08-07] MEDS ORDERED: ZESTRIL 10MG10 MG PO (17:39)
[2018-08-07] MEDS ORDERED: PRIL40 PO (17:39)
[2018-08-07] MEDS ORDERED: WELLBUTRIN XL300 M1 PO ×2 (17:39→21:23)
[2018-08-07] MEDS ORDERED: SUDAFED60 MG PO (17:40)
[2018-08-07] MEDS ORDERED: SINGULAIR 110 MG/TAB PO (17:40)
[2018-08-07] MEDS ORDERED: MIRALAX PA17 GM/Dose PO (17:41)
[2018-08-07] MEDS ORDERED: CLARITIN 1010 MG/TAB PO (17:41)
[2018-08-07] MEDS ORDERED: DULCOLAX STOOL100 MG PO (17:42)
[2018-08-07] MEDS ORDERED: PROBIOTIC FORMU1 CAP PO (17:42)
[2018-08-07 18:09] LABS: BASO # 0.1 (0.0-0.2); BASO % 0.7 % (0.0-2.0); EOS # 0.1 (0.0-0.7); EOS % 1.5 % (0-4.0); GRAN # 4.5 (1.4-6.5); GRAN % 60.4 % (42.2-75.2); HEMATOCRIT 40.9 % (37.0-47.0); HEMOGLOBIN 13.4 g/dl (12.5-16.0); LYMPH # 2.1 (1.2-3.4); LYMPH % 29.1 % (20.0-51.0); MEAN CELL VOLUME 78 fl (80.0-100.0); MEAN CORPUSCULAR HEMOGLOBIN 26 pg (27.0-31.0); MEAN CORPUSCULAR HGB CONC 33 g/dl (33.0-37.0); MEAN PLATELET VOLUME 8.7 fl (7.4-10.4); MONO # 0.6 (0.1-0.6); PLATELET COUNT 244 K/mm3 (130-400); RED BLOOD COUNT 5.26 M/mm3 (4.10-5.30); REDCELL DISTRIBUTION WIDTH-CV 15.7 % (11.5-14.5)
[2018-08-07 18:25] LABS: ALBUMIN 4.2 gm/dL (3.5-5.0); BILIRUBIN,TOTAL 0.4 mg/dL (0.0-1.0); CALCIUM 9.1 mg/dL (8.4-10.2); CREATININE, serum 0.67 mg/dL (0.52-1.25); POTASSIUM 3.3 mmol/L (3.4-5.0)
[2018-08-07 19:54] LABS: COLLECTION METHOD CLEAN CATCH
[2018-08-07 20:07] LABS: MUCOUS Present /lpf; PH 7 (5-8); SQUAMOUS EPITHELIAL None Seen /hpf; URINE APPEARANCE Clear; URINE BACTERIA None Seen /hpf; URINE BILIRUBIN Negative (NEGATIVE); URINE BLOOD 1+ (NEGATIVE); URINE COLOR Yellow; URINE GLUCOSE Negative (NEGATIVE); URINE KETONE Negative (NEGATIVE); URINE LEUKOCYTE ESTERASE Negative (NEGATIVE); URINE NITRATE Negative (NEGATIVE); URINE PROTEIN(semi-quant) Negative (NEGATIVE); URINE UROBILINOGEN Negative (NEGATIVE)
[2018-08-07 20:24] VITALS: BP 160/83; PULSE 79; TEMP 97
[2018-08-07] MEDS ORDERED: SYNTHROID0.5 MG (21:18)
[2018-08-07] MEDS ORDERED: TIROSINT50 MC1 PO (21:22)
[2018-08-07] MEDS ORDERED: NORCO 325 MG-51 TAB PO (21:27)
[2018-08-07] MEDS ORDERED: FLONASE NASAL S16 GM NS (21:31)
[2018-08-07] MEDS ORDERED: REFRESH CONTACT12 ML OP (21:32)
[2018-08-07] MEDS ORDERED: NASAL MOISTURIZ45 ML NS (21:32)
[2018-08-07] MEDS ORDERED: BENADRYL25 M2 PO (21:33)
[2018-08-07] MEDS ORDERED: FLEXERIL 1010 MG/TAB PO (21:34)
[2018-08-07] MEDS ORDERED: ZOFRAN8 MG PO (21:34)
[2018-08-07 22:20] VITALS: BP 149/86; PULSE 89; TEMP 98.7
[2018-08-07 23:57] VITALS: BP 151/89; PULSE 90
[2018-08-08 04:17] VITALS: BP 122/70; PULSE 87
[2018-08-08 08:11] VITALS: BP 126/76; PULSE 80; TEMP 99
[2018-08-08 12:08] VITALS: BP 157/93; PULSE 82; TEMP 98.1
[2018-08-08 15:59] VITALS: BP 132/66; PULSE 81; TEMP 98.7
[2018-08-08 20:00] VITALS: BP 152/80; PULSE 90; TEMP 99.7
[2018-08-09] VITALS (7 sets, daily range): BP systolic 114–143; BP diastolic 59–95; PULSE 76–94; TEMP 98–98.8
[2018-08-10 01:03] VITALS: BP 151/89; PULSE 89; TEMP 98.2
[2018-08-10 03:40] VITALS: BP 146/86; PULSE 83; TEMP 98.1
[2018-08-10 06:57] VITALS: BP 142/83; PULSE 74; TEMP 98.7
[2018-08-10 11:27] VITALS: BP 144/87; PULSE 76; TEMP 98.8
[2018-08-10 15:41] VITALS: BP 142/82; PULSE 78; TEMP 98.1
[2018-08-10 20:15] VITALS: BP 138/80; PULSE 82; TEMP 98.4
[2018-08-11] VITALS (7 sets, daily range): BP systolic 119–166; BP diastolic 80–96; PULSE 75–88; TEMP 98.1–98.9
[2018-08-12 00:42] VITALS: BP 143/89; PULSE 78; TEMP 98.8
[2018-08-12 03:05] VITALS: BP 148/88; PULSE 79; TEMP 98.3
[2018-08-12 07:24] VITALS: BP 141/88; PULSE 65; TEMP 98.5
[2018-08-12] MEDS ORDERED: BONINE25 MG PO (10:26)
[2018-08-12] MEDS ORDERED: AMOXICILLIN 8751 TAB PO (10:27)
[2018-08-12] MEDS ORDERED: ATIVAN 1MG T1 MG/TAB PO (10:30)
[2018-08-12] MEDS ORDERED: K-DUR20 MEQ PO (10:37)
[2018-08-12] MEDS ORDERED: DYAZIDE 25 MG-31 CAP PO (10:39)
[2018-08-12 11:35] VITALS: BP 134/93; PULSE 92; TEMP 98.4
[2018-08-12 16:51] VITALS: BP 134/82; PULSE 97; TEMP 97.8
== END 2018-08-12 17:55 | disposition home or self-care (01) | DRG 156 ==
LOC: COL.ER 17:20 → MEDICAL 19:41
PROVIDERS: Emergency Medicine
DX: H93.3X1 Disorders of right acoustic nerve (principal); I10 Essential (primary) hypertension; H55.00 Unspecified nystagmus
CPT/HCPCS: A9585; G0378; J2060; J2405; J7030; J7512

== ENCOUNTER → 2018-10-12 | Outpatient (CLI) | payer BC, MEDICARE ==
[~2018-10-12] MED LIST changes: +AMOXICILLIN 8751 TAB PO; +ATIVAN 1MG T1 MG/TAB PO; +BONINE25 MG PO; +CLARITIN 1010 MG/TAB PO; +DULCOLAX STOOL100 MG PO; +DYAZIDE 25 MG-31 CAP PO; +FLONASE NASAL S16 GM NS; +K-DUR20 MEQ PO; +NASAL MOISTURIZ45 ML NS; +PRIL40 PO; +REFRESH CONTACT12 ML OP; +SUDAFED60 MG PO; +SYNTHROID0.5 MG; +TIROSINT50 MC1 PO
== END ==
LOC: MHCPAIN 09:09
DX: G89.29 Other chronic pain (principal); M54.81 Occipital neuralgia; R51 Headache; M47.812 Spondylosis without myelopathy or radiculopathy, cervical region
CPT/HCPCS: G0463

== ENCOUNTER → 2019-04-13 | Outpatient (CLI) | payer BC | LOC: MHCPAIN 15:50 | DX: G89.29 Other chronic pain (principal); M54.81 Occipital neuralgia; R51 Headache; M47.812 Spondylosis without myelopathy or radiculopathy, cervical region | CPT/HCPCS: G0463 ==

== ENCOUNTER → 2019-05-13 | Outpatient (CLI) | payer BC | LOC: MHCPAIN 04-22 11:40 | DX: M54.12 Radiculopathy, cervical region (principal); M47.812 Spondylosis without myelopathy or radiculopathy, cervical region ==

== ENCOUNTER → 2019-05-18 | Outpatient (CLI) | payer BC | LOC: MHCPAIN 15:29 | DX: G89.29 Other chronic pain (principal); M54.12 Radiculopathy, cervical region; M54.81 Occipital neuralgia; R51 Headache; M47.812 Spondylosis without myelopathy or radiculopathy, cervical region | CPT/HCPCS: G0463 ==

== ENCOUNTER → 2019-06-07 | Outpatient (CLI) | payer BC | LOC: MHCPAIN 11:37 | DX: M47.812 Spondylosis without myelopathy or radiculopathy, cervical region (principal); M54.12 Radiculopathy, cervical region | CPT/HCPCS: J1100; J2250; J3010 ==

== ENCOUNTER 2019-08-07 20:14 | Inpatient (IN) | payer BC ==
[~2019-08-07] VITALS: Ht 157.5 cm; Wt 60.2 kg
[2019-08-07] MEDS ORDERED: LINZESS72 MCG PO (20:47)
[2019-08-07] MEDS ORDERED: NAPROSYN500 MG (20:50)
[2019-08-07] MEDS ORDERED: TYLENOL 325MG325 MG PO (20:51)
[2019-08-07 20:52] LABS: BASO # 0.1 (0.0-0.2); BASO % 0.5 % (0.0-2.0); EOS # 0.1 (0.0-0.7); EOS % 1.2 % (0-4.0); GRAN # 7.1 (1.4-6.5); GRAN % 76.5 % (42.2-75.2); HEMATOCRIT 38.4 % (37.0-47.0); HEMOGLOBIN 12.7 g/dl (12.5-16.0); LYMPH # 1.1 (1.2-3.4); LYMPH % 12.3 % (20.0-51.0); MEAN CELL VOLUME 80 fl (80.0-100.0); MEAN CORPUSCULAR HEMOGLOBIN 27 pg (27.0-31.0); MEAN CORPUSCULAR HGB CONC 33 g/dl (33.0-37.0); MEAN PLATELET VOLUME 8.1 fl (7.4-10.4); MONO # 0.8 (0.1-0.6); MONO % 8.8 % (1.7-9.3); PLATELET COUNT 258 K/mm3 (130-400); RED BLOOD COUNT 4.78 M/mm3 (4.10-5.30); REDCELL DISTRIBUTION WIDTH-CV 13.8 % (11.5-14.5)
[2019-08-07] MEDS ORDERED: NATURAL C500 MG PO (20:53)
[2019-08-07] MEDS ORDERED: MULTI VITAMINS1 TAB PO (20:53)
[2019-08-07] MEDS ORDERED: VITAMIN B COMPL1 SGL PO (20:54)
[2019-08-07 21:00] LABS: PROTHROMBIN TIME 11.1 SECONDS (9.7-12.8)
[2019-08-07 21:03] LABS: ALANINE AMINOTRANSFERASE 26 U/L (9-52); ALBUMIN 4.3 gm/dL (3.5-5.0); ALKALINE PHOSPHATASE 68 U/L (50-136); ANION GAP 9 mmol/L (7-16); AST,SGOT 26 U/L (15-37); BILIRUBIN,TOTAL 0.2 mg/dL (0.0-1.0); BLOOD UREA NITROGEN 21 mg/dL (7-17); CALCIUM 8.5 mg/dL (8.4-10.2); CARBON DIOXIDE 25 mmol/L (22-30); CHLORIDE 101 mmol/L (98-107); CREATININE, serum 0.53 (0.52-1.25); GLUCOSE 138 mg/dL (74-106); POTASSIUM 3.3 mmol/L (3.4-5.0); SODIUM 135 mmol/L (137-145); TOTAL PROTEIN 7.1 gm/dL (6.4-8.2)
[2019-08-07 21:16] LABS: TROPONIN-I < 0.012 ng/mL (0.000-0.035)
[2019-08-07] MEDS ORDERED: COLACE 100100 MG/CAP PO (22:44)
[2019-08-07] MEDS ORDERED: MIRALAX PA17 GM/Dose PO (22:47)
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
[2019-08-08 01:46] VITALS: BP 142/82; PULSE 83; TEMP 97.4
[2019-08-08 04:32] VITALS: BP 145/84; PULSE 86; TEMP 97.4
--- NOTE | 2019-08-08 04:53 | NUR ---
Pt resting in bed. No c/o pain or discomfort at this time. Pt back to sleep. Vitals WNL. No further concern at this time. Call light within reach.
[2019-08-08 07:36] VITALS: BP 127/78; PULSE 75; TEMP 98.6
[2019-08-08 08:25] VITALS: BP 140/85; PULSE 85; TEMP 97.8
--- NOTE | 2019-08-08 08:30 | NUR ---
Patient resting in bed. Easily awakened. A&Ox4, reporting pain in neck 02/01. Soft collar around neck. VSS. IV CDI, fluids infusing. No further needs expressed from patient. Call light within reach
[2019-08-08 08:49] VITALS: BP 140/85; PULSE 87; TEMP 97.8
[2019-08-08 11:52] VITALS: BP 132/86; PULSE 83; TEMP 98.4
[2019-08-08] MEDS ORDERED: AMOXICILLIN 8751 TAB PO (12:44)
[2019-08-08] MEDS ORDERED: PREDNISONE10 MG PO (12:48)
--- NOTE | 2019-08-08 15:48 | NUR ---
Discharge paperwork reviewed with patient. Patient verbalized an understanding of following doctors orders. IV removed, tip intact, gauze and coban covering. Patient tolerated well. Patient waiting on ride to come. No further needs expressed from patient. Call light within reach
--- NOTE | 2019-08-08 17:00 | NUR ---
Patient transfered by wheelchair to vehicle. Discharge paperwork and personal belongings with patient. Family with the patient. Dr Smith at the bedside. No further needs expressed from the patient.
== END 2019-08-08 17:00 | disposition home or self-care (01) | DRG 156 ==
LOC: COL.ER 20:14 → MEDICAL 22:10
PROVIDERS: Emergency Medicine; ADMIT Emergency Medicine
DX: H93.3X9 Disorders of unspecified acoustic nerve (principal); M54.2 Cervicalgia; G89.29 Other chronic pain; I10 Essential (primary) hypertension; E03.9 Hypothyroidism, unspecified; E87.6 Hypokalemia; Z87.891 Personal history of nicotine dependence; Z88.5 Allergy status to narcotic agent; Z88.2 Allergy status to sulfonamides; Z88.8 Allergy status to other drugs, medicaments and biological substances; Z88.1 Allergy status to other antibiotic agents; Z91.040 Latex allergy status; R11.2 Nausea with vomiting, unspecified; J32.9 Chronic sinusitis, unspecified
CPT/HCPCS: OP; C9113; J1650; J2405; J2550; J3010; J3360; J3480; J7030; J7512

== ENCOUNTER → 2019-09-01 | Outpatient (CLI) | payer BC ==
[~2019-09-01] MED LIST changes: +COLACE 100100 MG/CAP PO; +LINZESS72 MCG PO; +MULTI VITAMINS1 TAB PO; +NAPROSYN500 MG; +NATURAL C500 MG PO; +PREDNISONE10 MG PO; +TYLENOL 325MG325 MG PO; +VITAMIN B COMPL1 SGL PO
== END ==
LOC: MHCPAIN 15:07
DX: M54.81 Occipital neuralgia (principal); R51 Headache
CPT/HCPCS: G0463

== ENCOUNTER → 2020-01-24 | Outpatient (CLI) | payer BC | LOC: MHCPAIN 15:52 | DX: M47.812 Spondylosis without myelopathy or radiculopathy, cervical region (principal); M54.2 Cervicalgia; R51 Headache; M54.81 Occipital neuralgia; G89.29 Other chronic pain | CPT/HCPCS: G0463 ==

== ENCOUNTER → 2021-03-14 | Outpatient (CLI) | payer BC | LOC: COL.RAD 13:36 | DX: E04.1 Nontoxic single thyroid nodule (principal) ==

== ENCOUNTER → 2021-05-15 | Outpatient (CLI) | payer OTHER | LOC: COL.RAD 13:37 | DX: S06.0X0S Concussion without loss of consciousness, sequela (principal) | CPT/HCPCS: A9585 ==

== ENCOUNTER 2021-06-04 16:15 | Outpatient (RCR) | payer OTHER, BC | END 2021-06-13 15:11 | disposition home or self-care (01) | LOC: MKS.ESL.PT 16:15 | DX: S06.0X0S Concussion without loss of consciousness, sequela (principal) ==

== ENCOUNTER 2021-08-31 08:57 | Day surgery (SDC) | payer BC ==
[~2021-08-31] VITALS: Ht 157.5 cm; Wt 57.6 kg
[2021-08-31] MEDS ORDERED: ZANAFLEX CAPSULE2 MG PO (09:37)
[2021-08-31] MEDS ORDERED: VOLTAREN 75 DR75 MG PO (09:43)
[2021-08-31] MEDS ORDERED: PROTONIX 40MG T40 MG PO (09:44)
[2021-08-31 09:51] VITALS: BP 151/100; PULSE 90; TEMP 98.6
--- NOTE | 2021-08-31 10:40 | NUR ---
Went through discharge instructions with patient. Patient verbalized understanding to education. Patient got dressed independently. Notified ride that patient will be ready to discharge shortly.
[2021-08-31 10:45] VITALS: BP 120/74; PULSE 76; TEMP 97.7
[2021-08-31 11:00] VITALS: BP 127/74; PULSE 70
[2021-08-31 11:15] VITALS: BP 144/91; PULSE 81
--- NOTE | 2021-08-31 11:29 | NUR ---
1045: Patient arrived back into [facility] from endo procedure. Patient is alert and awake. Requesting toast and apple jucie with orange juice. 1100: Patient continues to do well. Denies pain or nausea. Tolerated food and drink well. 1115: Patient requesting an additional warm blanket. Continues to deny pain or nausea. 1130: Dr. Rodriguez in to see patient.
== END 2021-08-31 11:52 | disposition home or self-care (01) ==
LOC: SDCO 08:57
DX: K21.9 Gastro-esophageal reflux disease without esophagitis (principal); D50.9 Iron deficiency anemia, unspecified; K44.9 Diaphragmatic hernia without obstruction or gangrene; K57.30 Diverticulosis of large intestine without perforation or abscess without bleeding; I10 Essential (primary) hypertension; M19.90 Unspecified osteoarthritis, unspecified site; G89.29 Other chronic pain; M54.2 Cervicalgia; Z98.0 Intestinal bypass and anastomosis status; Z79.899 Other long term (current) drug therapy; Z79.891 Long term (current) use of opiate analgesic
CPT/HCPCS: J2704; J7030

== ENCOUNTER 2021-09-07 14:44 | Outpatient (CLI) | payer BC ==
[~2021-09-07] VITALS: Ht 157.5 cm; Wt 59.9 kg
[~2021-09-07 14:44] MED LIST changes: +PROTONIX 40MG T40 MG PO; +VOLTAREN 75 DR75 MG PO; +ZANAFLEX CAPSULE2 MG PO
[2021-09-07 15:26] VITALS: BP 115/67; PULSE 76; TEMP 97.9
--- NOTE | 2021-09-07 16:15 | NUR ---
Pt remained in dept for 30 mins following initial venofer infusion. She tolerated infusion without issue. INT DC'd with catheter intact. She ambulates from dept with steady gait using walking stick.
[2021-09-07] MEDS ORDERED: NASACORT OTC NS (18:34)
[2021-09-07] MEDS ORDERED: AMBIEN 5MG TABLE5 MG PO (18:35)
[2021-09-07] MEDS ORDERED: VITAMIN D31000 I1 PO (18:35)
[2021-09-07] MEDS ORDERED: CYMBALTA 60MG60 MG PO (18:35)
[2021-09-07] MEDS ORDERED: NORCO 325 MG-51 TAB PO (18:36)
[2021-09-07] MEDS ORDERED: B COMPLEX #11 TA1 PO (18:36)
[2021-09-07] MEDS ORDERED: PROTONIX 40MG T40 MG PO (18:36)
[2021-09-07] MEDS ORDERED: COLACE 100100 MG/CAP PO (18:37)
[2021-09-07] MEDS ORDERED: WELLBUTRIN XL300 M1 PO (18:37)
[2021-09-07] MEDS ORDERED: ZYRTEC 10MG10 MG PO (18:37)
[2021-09-07] MEDS ORDERED: VOLTAREN 75 DR75 MG PO (18:38)
[2021-09-07] MEDS ORDERED: MIRALAX PA17 GM/Dose PO (18:40)
[2021-09-07] MEDS ORDERED: MELATONIN5 M1 PO (18:40)
[2021-09-07] MEDS ORDERED: PROBIOTIC BLEN1 EACH PO (18:40)
== END 2021-09-07 17:16 | disposition home or self-care (01) ==
LOC: EUO 14:44
DX: E61.1 Iron deficiency (principal)
CPT/HCPCS: J1756

== ENCOUNTER → 2022-01-25 | Outpatient (CLI) | payer BC ==
[~2022-01-25] MED LIST changes: +AMBIEN 5MG TABLE5 MG PO; +B COMPLEX #11 TA1 PO; +CYMBALTA 60MG60 MG PO; +MELATONIN5 M1 PO; +NASACORT OTC NS; +PROBIOTIC BLEN1 EACH PO; +VITAMIN D31000 I1 PO; +ZYRTEC 10MG10 MG PO
== END ==
LOC: COL.RAD 12:49
DX: M47.812 Spondylosis without myelopathy or radiculopathy, cervical region (principal); M43.14 Spondylolisthesis, thoracic region

== ENCOUNTER → 2024-04-12 | Outpatient (CLI) | payer BC ==
[~2024-04-12] MED LIST changes: +CRANBERRY500 M3 PO; +K-TAB20 PO; +LIPITOR 40MG TA40 MG PO; +ZITHROMAX500 M2 PO; +ZOFRAN 4MG T4 MG/TAB PO
== END ==
LOC: MHCPAIN 15:02
DX: M41.86 Other forms of scoliosis, lumbar region (principal); M43.16 Spondylolisthesis, lumbar region; M48.07 Spinal stenosis, lumbosacral region; M54.16 Radiculopathy, lumbar region; M54.50 Low back pain, unspecified; I10 Essential (primary) hypertension; G89.29 Other chronic pain; Z79.891 Long term (current) use of opiate analgesic
CPT/HCPCS: G0463

== ENCOUNTER 2024-05-03 10:56 | Inpatient (IN) | payer BC ==
[~2024-05-03] VITALS: Ht 162.6 cm; Wt 48.0 kg
[2024-05-03] MEDS ORDERED: NS 1,000 ML IV ONE (12:30)
[2024-05-03] MEDS ORDERED: Ondansetron 4 MG/2 ML VIAL IV ONE (12:30)
[2024-05-03 12:34] LABS: BASO % 0.2 % (0.0-2.0); EOS # 0.1 K/mm3 (0.0-0.7); EOS % 0.5 % (0.0-4.0); GRAN # 18.4 K/mm3 (1.4-6.5); GRAN % 89.8 % (42.2-75.2); HEMATOCRIT 41.1 % (37.0-47.0); HEMOGLOBIN 13.6 g/dl (12.5-16.0); LYMPH # 0.9 K/mm3 (1.2-3.4); LYMPH % 4.2 % (20.0-51.0); MEAN CELL VOLUME 80 fl (80.0-100.0); MEAN CORPUSCULAR HEMOGLOBIN 27 pg (27-31); MEAN CORPUSCULAR HGB CONC 33 g/dl (33.0-37.0); MEAN PLATELET VOLUME 9.4 fl (7.4-10.4); MONO % 4.8 % (1.7-9.3); PLATELET COUNT 331 K/mm3 (130-400); RED BLOOD COUNT 5.13 M/mm3 (4.10-5.30); REDCELL DISTRIBUTION WIDTH-CV 15.6 % (11.5-14.5)
[2024-05-03 12:50] LABS: ALBUMIN 3.7 g/dL (3.4-4.8); BILIRUBIN,TOTAL 0.7 mg/dL (0.2-1.2); CALCIUM 9.2 mg/dL (8.4-10.2); CREATININE, serum 1.71 mg/dL (0.57-1.11); MAGNESIUM 2.8 mg/dL (1.6-2.6); POTASSIUM 3.6 mEq/L (3.5-4.5); TOTAL PROTEIN 6.6 g/dl (6.2-8.1)
[2024-05-03] MEDS ORDERED: fentaNYL 50 MCG/ML 2 ML VIAL IV ONE ×2 (13:30→16:00)
[2024-05-03 14:36] LABS: PH 5.5 (5.0-8.5); URINE APPEARANCE CLOUDY (CLEAR/HAZY); URINE BLOOD 2+ (NEGATIVE); URINE COLOR Dark Yellow (YELLOW); URINE GLUCOSE NEGATIVE (NEGATIVE); URINE KETONE TRACE (NEGATIVE); URINE NITRATE NEGATIVE (NEGATIVE); URINE PROTEIN(semi-quant) 1+ (NEGATIVE)
[2024-05-03 14:56] LABS: SQUAMOUS EPITHELIAL 0-2 /hpf (0-10); URINE BACTERIA MANY /hpf (NONE SEEN); URINE WBC 0-2 /hpf (0-2)
[2024-05-03 15:38] LABS: COLLECTION METHOD CATHETER
[2024-05-03 17:00] VITALS: BP_SYST 106
[2024-05-03 18:30] VITALS: BP 106/57; PULSE 91; TEMP 99.4
[2024-05-03] MEDS ORDERED: NS 1,000 ML IV SCH (18:45)
[2024-05-03] MEDS ORDERED: *Potassium Replacement Protocol MC SCH (18:45)
[2024-05-03] MEDS ORDERED: cefTRIAXone 1 G in Water For Injection,Sterile 10 ML IV SCH (19:00)
[2024-05-03 20:00] VITALS: BP_SYST 164
[2024-05-03] MEDS ORDERED: TOPAMAX 25MG25 M1 PO (20:18)
[2024-05-03] MEDS ORDERED: DESYREL 50MG50 MG PO (20:20)
[2024-05-03] MEDS ORDERED: DYAZIDE 25 MG-31 CAP PO (20:21)
[2024-05-03] MEDS ORDERED: FOSAMAX 70MG TA70 MG PO (20:25)
[2024-05-03] MEDS ORDERED: fentaNYL 50 MCG/ML 2 ML VIAL IV PRN (20:45)
[2024-05-03] MEDS ORDERED: oxyCODONE 5 MG TAB PO PRN (20:45)
[2024-05-03] MEDS ORDERED: Ondansetron 4 MG/2 ML VIAL IV PRN (20:45)
[2024-05-03] MEDS ORDERED: traZODone 50 MG TAB PO SCH (21:00)
[2024-05-03] MEDS ORDERED: Topiramate 25 MG TAB PO SCH (21:00)
[2024-05-03] MEDS ORDERED: tiZANidine 4 MG TAB PO SCH (21:00)
[2024-05-03] MEDS ORDERED: Atorvastatin 40 MG TAB PO SCH (21:00)
[2024-05-03] MEDS ORDERED: Potassium Chloride 100 ML IV ONE (21:15)
[2024-05-03 23:08] VITALS: BP 164/98; PULSE 100; TEMP 101
[2024-05-04] VITALS (10 sets, daily range): BP systolic 131–178; BP diastolic 76–87; PULSE 86–104; TEMP 97.8–99.6
[2024-05-04] MEDS ORDERED: fentaNYL 50 MCG/ML 2 ML VIAL IV PRN (01:30)
[2024-05-04 07:06] LABS: BASO % 0.2 % (0.0-2.0); EOS # 0.1 K/mm3 (0.0-0.7); EOS % 0.5 % (0.0-4.0); GRAN # 15.5 K/mm3 (1.4-6.5); GRAN % 87.8 % (42.2-75.2); HEMOGLOBIN 12.1 g/dl (12.5-16.0); LYMPH # 0.9 K/mm3 (1.2-3.4); MEAN CELL VOLUME 79 fl (80.0-100.0); MEAN CORPUSCULAR HEMOGLOBIN 27 pg (27-31); MEAN CORPUSCULAR HGB CONC 34 g/dl (33.0-37.0); MEAN PLATELET VOLUME 9.1 fl (7.4-10.4); MONO % 5.9 % (1.7-9.3); PLATELET COUNT 279 K/mm3 (130-400); RED BLOOD COUNT 4.56 M/mm3 (4.10-5.30); REDCELL DISTRIBUTION WIDTH-CV 15.3 % (11.5-14.5)
[2024-05-04 07:08] LABS: HEMATOCRIT 36.1 % (37.0-47.0)
[2024-05-04 07:33] LABS: ALBUMIN 3.4 g/dL (3.4-4.8); CALCIUM 8.7 mg/dL (8.4-10.2); CREATININE, serum 1.03 mg/dL (0.57-1.11); MAGNESIUM 2.5 mg/dL (1.6-2.6); PHOSPHOROUS 4.1 mg/dL (2.3-4.7)
[2024-05-04] MEDS ORDERED: buPROPion XL (24-HR) 150 MG TAB PO SCH (09:00)
[2024-05-04] MEDS ORDERED: Lisinopril 10 MG TAB PO SCH (09:40)
[2024-05-05] VITALS (13 sets, daily range): BP systolic 113–169; BP diastolic 70–118; PULSE 72–119; TEMP 98.6–99.4
[2024-05-05 06:30] LABS: BASO % 0.1 % (0.0-2.0); EOS % 0.1 % (0.0-4.0); GRAN # 8.5 K/mm3 (1.4-6.5); GRAN % 76.7 % (42.2-75.2); HEMATOCRIT 30.3 % (37.0-47.0); HEMOGLOBIN 10.3 g/dl (12.5-16.0); LYMPH # 1.5 K/mm3 (1.2-3.4); LYMPH % 13.5 % (20.0-51.0); MEAN CELL VOLUME 79 fl (80.0-100.0); MEAN CORPUSCULAR HEMOGLOBIN 27 pg (27-31); MEAN CORPUSCULAR HGB CONC 34 g/dl (33.0-37.0); MEAN PLATELET VOLUME 9.3 fl (7.4-10.4); MONO % 9.1 % (1.7-9.3); PLATELET COUNT 221 K/mm3 (130-400); RED BLOOD COUNT 3.83 M/mm3 (4.10-5.30); REDCELL DISTRIBUTION WIDTH-CV 15.4 % (11.5-14.5)
[2024-05-05 06:34] LABS: ALBUMIN 2.9 g/dL (3.4-4.8); CALCIUM 7.8 mg/dL (8.4-10.2); CREATININE, serum 0.72 mg/dL (0.57-1.11); PHOSPHOROUS 1.6 mg/dL (2.3-4.7)
[2024-05-05 06:39] LABS: POTASSIUM 2.8 mEq/L (3.5-4.5)
[2024-05-05] MEDS ORDERED: Potassium Bicarbonate/Citrate 20 MEQ Effervescent TAB PO SCH (08:00)
[2024-05-05] MEDS ORDERED: cefTRIAXone 1 G in Water For Injection,Sterile 10 ML IV ONE (11:00)
[2024-05-05] MEDS ORDERED: Acetaminophen 325 MG TAB PO PRN (15:15)
[2024-05-05] MEDS ORDERED: KLOR-CON20 MEQ PO (15:41)
[2024-05-05] MEDS ORDERED: ZOFRAN ODT4 MG PO (15:42)
[2024-05-05] MEDS ORDERED: Potassium Phoshate 10 MM in NS 250 ML IV SCH (17:00)
[2024-05-05] MEDS ORDERED: Iohexol 300 - 100 ML VIAL IV ONE (22:35)
[2024-05-05] MEDS ORDERED: NS 50 ML IV SCH (22:36)
[2024-05-06] VITALS (12 sets, daily range): BP systolic 88–132; BP diastolic 54–84; PULSE 60–79; TEMP 97.8–98.3
[2024-05-06] MEDS ORDERED: Potassium Bicarbonate/Citrate 20 MEQ Effervescent TAB PO ONE (01:45)
[2024-05-06] MEDS ORDERED: Potassium Chloride 100 ML IV ONE (01:45)
[2024-05-06] MEDS ORDERED: NS 500 ML IV ONE (01:45)
[2024-05-06] MEDS ORDERED: Potassium Chloride 100 ML IV SCH ×3 (03:15→10:15)
[2024-05-06 06:43] LABS: BASO % 0.3 % (0.0-2.0); EOS % 0.2 % (0.0-4.0); GRAN # 3.8 K/mm3 (1.4-6.5); GRAN % 60.8 % (42.2-75.2); HEMOGLOBIN 10.3 g/dl (12.5-16.0); LYMPH # 1.5 K/mm3 (1.2-3.4); LYMPH % 23.7 % (20.0-51.0); MEAN CELL VOLUME 79 fl (80.0-100.0); MEAN CORPUSCULAR HEMOGLOBIN 27 pg (27-31); MEAN CORPUSCULAR HGB CONC 34 g/dl (33.0-37.0); MEAN PLATELET VOLUME 9.3 fl (7.4-10.4); MONO # 0.9 K/mm3 (0.1-0.6); MONO % 14.7 % (1.7-9.3); PLATELET COUNT 227 K/mm3 (130-400); RED BLOOD COUNT 3.86 M/mm3 (4.10-5.30); REDCELL DISTRIBUTION WIDTH-CV 15.2 % (11.5-14.5)
[2024-05-06 06:47] LABS: HEMATOCRIT 30.6 % (37.0-47.0)
[2024-05-06 07:15] LABS: ALBUMIN 2.9 g/dL (3.4-4.8); CALCIUM 7.7 mg/dL (8.4-10.2); CREATININE, serum 0.65 mg/dL (0.57-1.11); MAGNESIUM 1.6 mg/dL (1.6-2.6); PHOSPHOROUS 1.8 mg/dL (2.3-4.7); POTASSIUM 3.1 mEq/L (3.5-4.5)
[2024-05-06] MEDS ORDERED: cefTRIAXone 1 G in Water For Injection,Sterile 10 ML IV ONE ×2 (10:15→11:30)
[2024-05-06] MEDS ORDERED: Potassium Phoshate 20 MM in NS 250 ML For P Level 1.5-1.9 IV ONE ×2 (11:00→13:30)
[2024-05-06] MEDS ORDERED: AMOXICILLIN 8751 TAB PO (13:56)
== END 2024-05-06 18:51 | disposition home or self-care (01) | DRG 392 ==
LOC: COL.ER 10:56 → MEDICAL 15:04
PROVIDERS: Nurse Practitioner; ADMIT Internal Medicine
DX: A09 Infectious gastroenteritis and colitis, unspecified (principal); N39.0 Urinary tract infection, site not specified; N17.9 Acute kidney failure, unspecified; E44.0 Moderate protein-calorie malnutrition; Z68.1 Body mass index [BMI] 19.9 or less, adult; G89.29 Other chronic pain; M54.2 Cervicalgia; M54.9 Dorsalgia, unspecified; K59.09 Other constipation; E78.5 Hyperlipidemia, unspecified; I10 Essential (primary) hypertension; B95.4 Other streptococcus as the cause of diseases classified elsewhere; E87.6 Hypokalemia; E83.42 Hypomagnesemia; K21.9 Gastro-esophageal reflux disease without esophagitis; F32.A Depression, unspecified; G47.00 Insomnia, unspecified; E03.9 Hypothyroidism, unspecified; Z88.0 Allergy status to penicillin; Z88.2 Allergy status to sulfonamides; Z88.8 Allergy status to other drugs, medicaments and biological substances; Z88.6 Allergy status to analgesic agent; Z88.1 Allergy status to other antibiotic agents; Z91.040 Latex allergy status; Z79.899 Other long term (current) drug therapy; Z79.890 Hormone replacement therapy; Z90.710 Acquired absence of both cervix and uterus; Z23 Encounter for immunization
CPT/HCPCS: G0378; J0696; J0780; J2405; J3010; J3475; J3480; J7030; J7040; J7050; Q9967